=== PATIENT | female | born 2000 | race Caucasian/White ===

== ENCOUNTER 2023-03-04 20:53 | Emergency (ER) | payer SELFPAY ==
[~2023-03-04] VITALS: Ht 157.5 cm; Wt 59.0 kg
[~2023-03-04 20:53] MED LIST: PHEN118S36
[2023-03-04 20:57] VITALS: BP 123/74; O2SAT 98
[2023-03-04] MEDS ORDERED: ACETAMINOPHEN 325MG TABLET PO ONE (22:30)
[2023-03-05] MEDS ORDERED: IBUP-2028 MT (00:34)
[2023-03-05 00:41] VITALS: PULSE 88; RESP 16; TEMP 97.9
== END 2023-03-05 00:40 | disposition home or self-care (01) ==
LOC: ER 20:53
DX: R51.9 Headache, unspecified (principal); M54.50 Low back pain, unspecified; V49.59XA Passenger injured in collision with other motor vehicles in traffic accident, initial encounter; Y93.89 Activity, other specified; Y92.89 Other specified places as the place of occurrence of the external cause; Y99.8 Other external cause status
CPT/HCPCS: 81025; 99284